=== PATIENT | female | born 1950 | race Hispanic/Latino ===

== ENCOUNTER 2019-01-18 22:47 | Observation (INO) | payer MEDICARE ==
[2019-01-18] MEDS ORDERED: hydrALAZINE 20 MG/ML VIAL ONE (23:10)
[2019-01-19 00:44] LABS: Troponin I 0.023 ng/mL (< 0.028)
[2019-01-19 01:12] VITALS: BMI 25.5
[2019-01-19] MEDS ORDERED: Acetaminophen 325 MG TAB PO PRN (01:53)
[2019-01-19] MEDS ORDERED: Ondansetron PF 4 MG/2 ML Vial IVP PRN (01:53)
[2019-01-19] MEDS ORDERED: HumaLOG 300 UNITS/3 ML VIAL SC PRN (02:16)
[2019-01-19] MEDS ORDERED: Dextrose 5% in Water 1,000 ML IV PRN (02:16)
[2019-01-19] MEDS ORDERED: Dextrose 50% Abboject 50 ML SYRINGE SLOW IVP PRN (02:16)
[2019-01-19] MEDS ORDERED: hydrALAZINE 20 MG/ML VIAL SLOW IVP PRN (02:54)
[2019-01-19] MEDS ORDERED: INSULIN GLARGINE HUM REC ANLOG 3 UNIT SQ PRN (02:58)
[2019-01-19] MEDS ORDERED: [UNRECOGNIZED DRUG - OTHER] SQ PRN (02:58)
[2019-01-19 03:17] LABS: #Eosinphils 0.3 thou/uL (0.0-0.7); #Lymphocytes 2.5 thou/uL (1.20-3.40); #Monocytes 0.5 thou/uL (0.11-0.59); #Neutrophils 8.5 thou/uL (1.40-6.50); %Basophils 0.3 % (0.0-1.0); %Eosinophils 2.9 % (0.0-10.0); %Lymphocytes 20.7 % (21.0-51.0); %Monocytes 4.4 % (0.0-10.0); %Neutrophils 71.8 % (42.0-75.0); Hemoglobin 11.7 g/dL (12.0-16.0); Mean Corpuscular HGB CONC 33.3 g/dL (32.0-36.0); Mean Corpuscular Hemoglobin 31.9 pg (27.0-31.0); Mean Corpuscular Volume 95.6 fL (78.0-98.0); Mean Platelet Volume 8.3 fL (7.4-10.4); Platelet Count 203 thou/uL (130-400); Red Blood Cell (RBC) Count 3.67 mill/uL (4.20-5.40); White Blood Cell (WBC) Count 11.8 thou/uL (4.8-10.8)
--- NOTE | 2019-01-19 03:33 | HP ---
CHIEF COMPLAINT: Epigastric tenderness, burning, and diarrhea. HISTORY OF PRESENT ILLNESS: The patient is a 68-year-old female with a past medical history of diabetes, hypertension, who presents to the hospital with complaints of epigastric pain and diarrhea x1 day. The patient states that she is from [place], was visiting family in [place]. However, on the way back today, started having some diarrhea. The patient stated that she went to the bathroom multiple times. Initially, she has soft stool followed by some diarrhea. She stated that she took some Imodium. She had emesis x1. It was yellowish in color and was a very sour taste. At this time, she started having some burning in her chest, so she came into the ER for further evaluation. The patient currently denies any chest pain, nausea, vomiting, or diarrhea. Her last bowel movement was around 6:30 this p.m. PAST MEDICAL HISTORY: She has a history of high blood pressure, diabetes, CKD stage 3. PAST SURGICAL HISTORY: She denies any surgical history. MEDICATIONS: She takes insulin and lisinopril, which she did not take today. ALLERGIES: SHE HAS NO KNOWN DRUG ALLERGIES. REVIEW OF SYSTEMS: All negative except for the ones mentioned above in the HPI. SOCIAL HISTORY: She denies any alcohol use, drug use, or smoking history. She is a full code. Lives with her . FAMILY HISTORY: History of high blood pressure and diabetes. PHYSICAL EXAMINATION: VITAL SIGNS: Temperature of 97.7, 67, 20, 99% on room air, and 195/81. GENERAL: She is awake, alert, and oriented x3. Does not appear in any distress. CV: S1, S2 present. No murmurs, rubs, or gallops. ABDOMEN: Soft and nontender. Bowel sounds are present x2. EXTREMITIES: No edema. Pedal pulses are present x2. NEUROVASCULAR: No focal deficits noted. SKIN: No cuts, lesions, or bruises noted. LABORATORY RESULTS: As of the following; WBCs of 14.7, hemoglobin of 13.9, hematocrit of 43.7, platelets of 257. Chemistry; sodium of 139, potassium of 4.5, BUN 37, creatinine of 2.61, glucose was 259. Her alkaline phosphatase was 116. Her BNP was 161. Initial troponin was negative. She also had a chest x-ray that did not indicate any acute abnormalities. ASSESSMENT AND PLAN: The patient is a very pleasant 68-year-old female, who presents to the hospital with complaints of epigastric pain. 1. Atypical chest pain, this is secondary to her reflux probably. She describes her pain as a very burning-like sensation that currently is not there and has resolved. She stated that she recently had a Holter monitor placed in by her rn anesthesiology in [place] and stated that everything was okay. Her last stress test has been for a few years. I will trend her troponins. If her troponins are negative x3, I think she should be okay to be discharged. 2. Diarrhea. This could be secondary to possibly something she ate. She stated that she ate some beef [employer] at her [employer] today and then had lunch around noon and then she started having diarrhea around 3 o'clock. Currently, she has no abdominal pain. She never had abdominal pain and her diarrhea has stopped. However, she did take Imodium. We will check her labs in the morning. 3. Hypertension urgency. The patient states that she normally takes losartan, however, did not take it on Saturday. I will restart her medication and also put on some p.r.n. She also states that she has been eating pretty salty foods for the holiday weekend. 4. Diabetes, uncontrolled. The patient states that she did not take her insulin with her. She has not had insulin since . I will start her on sliding scale and also give her some Lantus tonight. 5. Deep venous thrombosis prophylaxis. We will put patient on SCD. I think the patient should be okay for discharge in the morning. She can follow up with her primary care doctor in [place]. Job ID: [id number]
[2019-01-19 03:37] LABS: Anion Gap 8 mmol/L (10-20); BUN (Urea Nitrogen) 34 mg/dL (9.8-20.1); Calc. Creatinine Clearance 24 mL/min (70-130); Calcium 8.1 mg/dL (7.8-10.44); Carbon Dioxide 22 mmol/L (23-31); Chloride 113 mmol/L (98-107); Estimated GFR-MDRD 21; Glucose 290 mg/dL (80-115); Potassium 4.8 mmol/L (3.5-5.1); Sodium 138 mmol/L (136-145)
[2019-01-19 06:54] LABS: Troponin I Less than 0.010 ng/mL (< 0.028)
[2019-01-19 07:09] VITALS: BP 119/55
[2019-01-19 07:59] VITALS: TEMP 97.4
[2019-01-19] MEDS ORDERED: Lisinopril 20 MG TAB PO SCH (09:00)
[2019-01-19] MEDS ORDERED: Famotidine/PF 20 mg/2ml Vial SLOW IVP SCH (09:00)
[2019-01-19] MEDS ORDERED: Enoxaparin Sodium 30 MG/0.3 ML SYRINGE SC SCH (09:00)
[2019-01-19] MEDS ORDERED: Insulin Glargine 8 UNITS in Pre-Filled Syringe 1 EACH SC SCH (09:00)
[2019-01-19] MEDS ORDERED: Sodium Chloride 0.9% 1,000 ML IV SCH (09:45)
[2019-01-19] MEDS ORDERED: INSULIN ASPART 16 UNIT SQ SCH (21:00)
--- NOTE | 2019-01-20 09:55 | DIS ---
DATE OF ADMISSION: 01/19/2019 DATE OF DISCHARGE: 01/19/2019 DISCHARGE DISPOSITION: Home. FOLLOWUP: 1. Follow up with primary care physician in [place]. 2. Repeat basic metabolic profile later this week is recommended. The patient is also scheduled to follow up with her primary direct support worker later this week. DISCHARGE MEDICATION: Lisinopril was changed to amlodipine 5 mg twice a day. Clonidine was added for systolic blood pressure more than 180. She was advised to continue her insulin dosing. INPATIENT FUND ACCOUNTING MANAGER: None. The patient was seen and examined on the day of discharge. Denies any new complaints. No chest pain, shortness of breath, or palpitations reported. Diarrhea has improved. BRIEF HOSPITAL COURSE: The patient is a 68-year-old female, residing in [place], presented to the hospital with diarrhea along with epigastric tenderness. The patient was driving back to [place] and stopped by in the emergency room for evaluation. Workup was consistent with acute kidney injury. Her creatinine on admission was 2.61. I called her primary direct support worker and found out that a baseline creatinine is around 1.9. Lisinopril was changed to amlodipine for time being. Her diarrhea has completely resolved. She denies any chest discomfort at this time. Troponin has been downtrending and negative. The initial troponin at the emergency room was 0.044 that was probably due to dehydration. She has been ambulating in the hallway and denies any complaints at this time and is requesting to be discharged. FINAL DIAGNOSES: 1. Acute kidney injury on chronic kidney disease stage 3. 2. Nausea along with diarrhea, probably secondary to gastroenteritis that has resolved. 3. Hypertensive urgency, improved. 4. Diabetes mellitus, type 2. 5. Epigastric pain, probably secondary to gastroesophageal reflux disease versus gastroenteritis. 6. The patient has a followup with her primary mental health counselor as well. 7. Type 2 myocardial infarction. 8. Leukocytosis, probably secondary to gastroenteritis. PLAN: Plan was discussed with the patient and the family in detail. They stated understanding. Job ID: [id number]
== END 2019-01-19 11:54 | disposition home or self-care (01) ==
LOC: ERS 22:47 → 2SW 01-19 01:01
PROVIDERS: ADMIT Internal Medicine; ATTEND Internal Medicine
DX: R10.13 Epigastric pain (principal); R19.7 Diarrhea, unspecified; I16.0 Hypertensive urgency; I12.9 Hypertensive chronic kidney disease with stage 1 through stage 4 chronic kidney disease, or unspecified chronic kidney disease; E11.22 Type 2 diabetes mellitus with diabetic chronic kidney disease; N18.3 Chronic kidney disease, stage 3 (moderate); N17.9 Acute kidney failure, unspecified; R11.0 Nausea; I21.A1 Myocardial infarction type 2; D72.829 Elevated white blood cell count, unspecified; Z79.4 Long term (current) use of insulin; Z79.899 Other long term (current) drug therapy; Z91.19 Patient's noncompliance with other medical treatment and regimen
CPT/HCPCS: 80048; 82962 ×2; 84484 ×2; 85025; 93005; 96372; 96374; 96375; 99285; G0378 ×2; 36415; 36416; J0360; J1650; J1815; S0028